=== PATIENT | male | born 1960 | race Asian ===

== ENCOUNTER → 2022-12-31 | Day surgery (SDC) | payer OTHER ==
[~2022-12-31] MED LIST: AMLODIPINE BESYL5 MG PO; LACTATED RINGER'S 1,000 ML ONE; LIDOCAINE HCL 2% LOCAL INJ 5 ML SDV VIAL INJ ONE; POVIDONE IODINE 0.05% 0.05 % ML PO ONE; PROPOFOL IV EMULSION 10 MG/ML 20 ML VIAL ONE
[2022-12-31 15:05] VITALS: BP 148/90
== END | disposition home or self-care (01) ==
LOC: OR 10:58
PROVIDERS: ATTEND Internal Medicine Gastroenterology
DX: K29.70 Gastritis, unspecified, without bleeding (principal); K29.80 Duodenitis without bleeding; K31.A11 Gastric intestinal metaplasia without dysplasia, involving the antrum; K25.9 Gastric ulcer, unspecified as acute or chronic, without hemorrhage or perforation; K22.89 Other specified disease of esophagus; K44.9 Diaphragmatic hernia without obstruction or gangrene; R03.0 Elevated blood-pressure reading, without diagnosis of hypertension; F17.210 Nicotine dependence, cigarettes, uncomplicated; Z79.1 Long term (current) use of non-steroidal anti-inflammatories (NSAID); Z79.899 Other long term (current) drug therapy
CPT/HCPCS: 43239; 93005; J2001; J2704; J7121